=== PATIENT | male | born 1945 | race Caucasian/White ===

== ENCOUNTER 2023-12-21 23:28 | Observation (INO) ==
[2023-12-21 23:55] LABS: ABS Basophils 0.1 10^3/uL (0.0-0.1); ABS Eosinophils 0.2 10^3/uL (0.0-0.5); ABS Lymphocytes 2.2 10^3/uL (1.0-4.8); ABS Neutrophils 7.8 10^3/uL (1.5-7.6); ABS Nucleated RBC 0.02 10^3/ul; Eosinophil % 1.6 %; Hematocrit 45.4 % (38-53); Hemoglobin 15.3 g/dL (13.2-16.3); Lymphocyte % 19.2 %; Mean Corpuscular Hemoglobin 31.2 pg (27-33); Mean Corpuscular Hgb Conc 33.7 g/dL (31-36); Mean Corpuscular Volume 92.4 fL (80-97); Mean Platelet Volume 7.9 fL (7.5-11.2); Nucleated Red Blood Cells % 0.1 %/100WBC (0.0-0.8); Platelet Count 210 10^3/uL (150-450); Red Blood Count 4.92 10^6/uL (4.06-5.63); Red Cell Distribution Width 13.6 % (12-17); White Blood Count 11.2 10^3/uL (3.6-10.2)
[2023-12-22 00:08] LABS: INR 1.18 (0.83-1.13)
[2023-12-22 00:17] LABS: ALT 21 U/L (7-52); Albumin 4.4 g/dL (3.2-5.2); Albumin/Globulin Ratio 1.3 (1-3); Alkaline Phosphatase 82 U/L (35-149); Anion Gap 9 mmol/L (2-16); Blood Urea Nitrogen 26 mg/dL (6-24); CO2 Carbon Dioxide 29 mmol/L (22-32); Calcium 9.4 mg/dL (8.6-10.3); Chloride 103 mmol/L (101-111); Globulin 3.3 g/dL (2-4); Glucose 113 mg/dL (70-100); Sodium 141 mmol/L (135-145); Total Bilirubin 0.4 mg/dL (0.2-1.0); Total Protein 7.7 g/dL (6.4-8.9); eGFR CKD-EPI 44.1 (>60)
[2023-12-22 00:22] LABS: High Sens Troponin Baseline 11 pg/mL (<20)
[2023-12-22] MEDS: Ondansetron 4 mg VIAL 2 MG/ML 2 ml VIAL IV ONE (00:26)
[2023-12-22] MEDS: Morphine 4 MG/ML VIAL (1 ml) IV ONE ×2 (00:28→04:16)
[2023-12-22 01:27] LABS: Potassium Redraw 4.4 mmol/L (3.5-5.0)
[2023-12-22] MEDS: Iodixanol (CONTRAST) 320 MG/ML 100 ML SDV IV ONE (02:38)
[2023-12-22] MEDS: Lactated Ringers 1000 ml BAG 1,000 ML IV ONE (03:36)
[2023-12-22 07:19] LABS: High Sensitivity Troponin 3 Hr 10 pg/mL (<20)
[2023-12-22] MEDS ORDERED: Sulfur Hexaflouride MICROSPHR 25 MG VIAL ONE (11:21)
[2023-12-22 11:47] LABS: Magnesium 1.9 mg/dL (1.9-2.7)
[2023-12-22 15:03] VITALS: BP 140/78
== END 2023-12-22 14:44 | disposition home or self-care (01) ==
LOC: ED 23:28 → EDHOLD 23:28 → MEDTELE 12-22 13:44
PROVIDERS: ADMIT Hospitalist; ATTEND Hospitalist